=== PATIENT | female | born 1950 | race Caucasian/White ===

== ENCOUNTER 2019-09-24 07:28 | Outpatient (CLI) | payer MEDICARE, SELFPAY ==
--- NOTE | ~2019-09-24 | MR_ITS ---
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 Sequences included full-field axial PD-weighted FS FSE and T1-weighted FSE, coronal of the pelvis with PD-weighted FS FSE, small field of view of the affected hip with axial PD-weighted FS FSE, sag ittal PD-weighted FS FSE and coronal PD weighted FS FSE. Additional radial T1-weighted FGR oriented o rthogonal to the acetabular rim were obtained for evaluation of the labrum. COMPARISON: None FINDINGS: Bones/labrum/cartilage: Alignment is normal. There is increased T2 signal and curvilinear low signal underlying the articular cortex at the anterosuperior aspect of the left femoral head with irregular contour to the overlying articular cortex. There is no clearly defined double line sign, the contours of the curvilinear low signal favor degenerative subarticular cysts and there is associated prominent anterosuperior joint s pace narrowing with cartilage loss and with subarticular edema at the juxtaposed anterosuperior aceta bulum, all favoring that this represents degenerative change related to osteoarthritis with severe ch ondromalacia at the femoral head rather than osteonecrosis or insufficiency fracture. There is [place] at the bone chondral interface at the superolateral margin of the acetabulum. There is a diffu se degeneration of the left acetabular labrum which is diminutive anteriorly. Severe lower lumbar spo ndylosis. Fluid: Asymmetric small left hip joint effusion. Soft tissues: Normal and symmetric muscle bulk and signal in the pelvis and visualized proximal thighs. The iliopso as, gluteal and proximal hamstring tendons are normal. Limited evaluation of visceral organs of the p champ is unremarkable. No pathologically enlarged pelvic/inguinal lymphadenopathy. IMPRESSION: 1. 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 No specific MR findings of avascular necrosis. 2. Severe lower lumbar spondylosis. Reviewed, dictated and finalized at location A. IMPRESSION: 1. 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 No specific MR findings of stephany scular necrosis. 2. Severe lower lumbar spondylosis.
== END 2019-09-24 07:29 | disposition home or self-care (01) ==
PROVIDERS: PCP Internal Medicine; Visit Provider Orthopaedic Surgery
DX: M87.00 Idiopathic aseptic necrosis of unspecified bone (principal); M47.896 Other spondylosis, lumbar region; M16.12 Unilateral primary osteoarthritis, left hip
CPT/HCPCS: 73721

== ENCOUNTER 2020-10-25 09:26 | Outpatient (CLI) | payer MEDICARE, SELFPAY ==
--- NOTE | ~2020-10-25 | MM_ITS ---
EXAMINATION: MM screening [facility] BI w mariah HISTORY: Screening mammogram TECHNIQUE: Craniocaudal and mediolateral oblique 3-D tomosynthesis images were obtained and synthetic 2-D images were generated. CAD analysis was submitted and interpreted. COMPARISON: 07/15/2019, 06/26/2018, 06/19/2017 BREAST PARENCHYMAL COMPOSITION: There are scattered areas of fibroglandular density. FINDINGS: There is no evidence of suspicious mass, calcification, or architectural distortion to sugg est malignancy in either breast. There has been no suspicious interval change. IMPRESSION: 1. No mammographic evidence of malignancy. 2. Recommend routine screening mammography in one year. BI-RADS Category 1: Negative Reviewed, dictated and finalized at location A.
== END 2020-10-25 09:27 | disposition home or self-care (01) ==
LOC: ANHIMG 09:31
PROVIDERS: PCP Internal Medicine; Visit Provider Obstetrics & Gynecology
DX: Z12.31 Encounter for screening mammogram for malignant neoplasm of breast (principal)
CPT/HCPCS: 77063; 77067

== ENCOUNTER 2021-12-29 07:59 | Outpatient (CLI) | payer MEDICARE, SELFPAY ==
--- NOTE | ~2021-12-29 | MM_ITS ---
EXAMINATION: MM screening [facility] w mariah HISTORY: Screening mammogram TECHNIQUE: Craniocaudal and mediolateral oblique 3-D tomosynthesis images were obtained and synthetic 2-D images were generated. CAD analysis was submitted and interpreted. COMPARISON: 10/25/2020, 07/15/2019, 06/26/2018 bilateral screening mammogram examinations BREAST PARENCHYMAL COMPOSITION: The breasts are heterogeneously dense, which may obscure small masses . FINDINGS: There is no evidence of suspicious mass, calcification, or architectural distortion to sugg est malignancy in either breast. There has been no suspicious interval change. IMPRESSION: 1. No mammographic evidence of malignancy. 2. Recommend routine screening mammography in one year. BI-RADS Category 1: Negative Reviewed, dictated and finalized at location A.
== END 2021-12-29 08:00 | disposition home or self-care (01) ==
LOC: ANHIMG 08:01
PROVIDERS: PCP Internal Medicine; Visit Provider Obstetrics & Gynecology
DX: Z12.31 Encounter for screening mammogram for malignant neoplasm of breast (principal)
CPT/HCPCS: 77063; 77067

== ENCOUNTER 2023-02-01 09:39 | Outpatient (CLI) | payer MEDICARE, OTHER, SELFPAY ==
--- NOTE | ~2023-02-01 | MM_ITS ---
EXAMINATION: MM screening [facility] BI w mariah HISTORY: Screening mammogram TECHNIQUE: Craniocaudal and mediolateral oblique 3-D tomosynthesis images were obtained and synthetic 2-D images were generated. CAD analysis was submitted and interpreted. COMPARISON: 12/29/2021, 10/25/2020, 07/15/2019, 06/19/2017 BREAST PARENCHYMAL COMPOSITION: There are scattered areas of fibroglandular density. FINDINGS: No suspicious mass, calcification, or architectural distortion are identified in either shadra ast to suggest malignancy. There has been no suspicious interval change. IMPRESSION: 1. No mammographic evidence of malignancy. 2. Recommend routine screening mammography in one year. BI-RADS Category 1: Negative Reviewed, dictated and finalized at location A.
== END 2023-02-01 09:40 | disposition home or self-care (01) ==
PROVIDERS: PCP Internal Medicine; Visit Provider Family Medicine
DX: Z12.31 Encounter for screening mammogram for malignant neoplasm of breast (principal)
CPT/HCPCS: 77063; 77067

== ENCOUNTER 2023-05-13 09:00 | Outpatient (RCR) | payer MEDICARE, OTHER, SELFPAY ==
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
--- NOTE | 2023-03-13 17:56 | OPREHPOC ---
Outpatient Therapy Plan of Care This is a Multidisciplinary Plan of Care that may contain components documented by all disciplines (PT, OT, and ST.) PT Goal 1 Goal Pt will verbalize understanding of diagnosis and prognosis Target Visit 12 PT Goal 2 Goal Pt will be independent in HEP Target Visit 16 PT Problem 2 PT Problem #2 Pain PT Goal 1 Goal Pt will report greatest pain level at 3/10 or less Target Visit 12 PT Goal 2 Goal Pt will report resolution of pain Target Visit 16 PT Problem 3 PT Problem #3 Impaired Range of Motion PT Goal 1 Goal Pt will demo PROM left hip within 75% of right hip Pt will demo cervical lateral flexion of 30 degrees or greater Target Visit 16 PT Problem 4 PT Problem #4 Impaired Strength PT Goal 1 Goal Pt will demo strength of 4/5 in all tested planes Target Visit 16
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
--- NOTE | 2023-05-13 16:49 | PTOPDC ---
Assessment and note entered by Megan Be, PT Assessment Status Discharge Diagnosis cervicalgia, left hip pain Onset 02/01/2023 Subjective Information Self percieved improvement: 97% Neck is doing better, this last week feels like hip is doing good. No constant ache, only has discomfort going up steps and longer walking periods. Still an ache in the muscle but when gets bad will travel back. Reported Pain Level Pain Score 1,0: Self Report Assessment PT Clinical Summary Pt has attended therapy consistently for cervical and left hip pain. She reports feling 97% improved overall, has met most of her therapy goals however cont to have overall deficits in cervical range of motion and decreased hip weakness. However she feels confident in her understanding of her exercises and reports feeling much better than when starting therapy. Thus patient is being discharged for completion of therapy plan
== END 2023-05-15 11:07 | disposition home or self-care (01) ==
LOC: ANHHIPT 09:00
PROVIDERS: PCP Nurse Practitioner Family; Visit Provider Nurse Practitioner Family
DX: M54.2 Cervicalgia (principal)
CPT/HCPCS: 97014; 97110; 97112; 97140; 97162; 97750; G0283

== ENCOUNTER 2023-08-19 02:04 | Day surgery (SDC) | payer MEDICARE, OTHER, SELFPAY ==
[2023-07-23 14:16] VITALS: BMI 23.8
--- NOTE | 2023-08-16 11:06 | SUR.PREOP ---
Patient called regarding upcoming procedure. Reviewed preop instructions, appointment times, and procedure prep.
[2023-08-19 07:17] VITALS: BP 101/59; PULSE 85; RESP 20; TEMP 35.9; O2SAT 99; BMI 22.6
[2023-08-19] MEDS: LACTATED RINGERS 1,000 ML 150 ML IV CONT (07:27)
--- NOTE | 2023-08-19 07:48 | WPDANESEPPF ---
Anes - Initial Pre Proc Eval Procedure: Operation Date: 08/19/23 08:30 Proposed Procedures p Screening Colonoscopy - Baljit Swann MD Date/Time: 08/19/23 07:48 Surgeon: Baljit Swann MD Pre Op Diagnosis: hx of colon polyps Patient Data Age: 73 Gender: F Height: 1.57 m Weight: 56.3 kg Last Vital Signs Temp 96.7 F L 08/19/23 07:17 Pulse 85 08/19/23 07:17 Resp 20 08/19/23 07:17 BP 101/59 L 08/19/23 07:17 Pulse Ox 99 08/19/23 07:17 O2 Del Method Room Air 08/19/23 07:17 Allergies Allergy/AdvReac Type Severity Reaction Status Date / Time sulfamethoxazole AdvReac Intermediate Gastrointestinal Verified 08/19/23 07:14 [From Bactrim] Upset trimethoprim [From Bactrim] AdvReac Intermediate Gastrointestinal Verified 08/19/23 07:14 Upset Home Medications Medication Instructions Recorded Confirmed Type multivitamin 1 tablet PO DAILY 05/14/22 07/23/23 History cholecalciferol (vitamin D3) 50 50 mcg PO DAILY 05/15/22 07/23/23 History mcg (2,000 unit) capsule cyanocobalamin (vitamin B-12) 1,000 mcg PO DAILY 05/15/22 07/23/23 History 1,000 mcg capsule mupirocin 2 % topical ointment 1 applic topical BID #15 grams 05/15/22 07/23/23 Rx vit A 300 mcg-C 200 mg-E 27 1 tablet PO DAILY 05/15/22 07/23/23 History mg-lutein 2 mg and minerals tablet (Ocuvite with Lutein) olmesartan 20 mg tablet (Benicar) 20 mg PO DAILY #90 tabs 12/10/22 07/23/23 Rx hydrochlorothiazide 12.5 mg tablet 12.5 mg PO DAILY #90 tabs 02/08/23 07/23/23 Rx escitalopram oxalate 10 mg tablet 10 mg PO DAILY #90 tabs 07/15/23 07/23/23 Rx simvastatin 20 mg tablet 20 mg PO DAILY #90 tabs 07/15/23 07/23/23 Rx Patient hx anesthesia problems: none Family hx anesthesia problems: none Results Review: All pre-operative results and documents have been reviewed as part of the pre-operative evaluation. [facility] Past Medical History Medical History (Updated 06/16/23 @ 17:00 by Lon Rodney MD) Annual physical exam Heart disease High blood pressure High cholesterol Melanoma (~03/2015) left calf Osteoporosis Screening for breast cancer Screening for colon cancer Screening for thyroid disorder Screening mammogram, encounter for Squamous cell carcinoma (~03/2015) calf Squamous cell carcinoma of left lower leg Vaginal lesion (01/06/04) wide local excision of vaginal wall lesion--dysplasia Surgical History Surgical History H/O hysterectomy for benign disease History of ankle surgery (~2018) rt broken ankle--pins/plate placed History of colposcopy with cervical biopsy (12/07/03) History of orthopedic surgery (02/05/11) left wrist fracture History of tonsillectomy History of total abdominal hysterectomy and bilateral salpingo-oophorectomy (~1998) Family History Family History Unknown No problems noted. Father Malignant tumor of urinary bladder Other Heart disease Hypertension Social History Social History (Updated 06/11/23 @ 08:06 by Dorota Whitman [facility]) Smoking status: Never smoker Alcohol intake: current Drinks per week: 4 Substance use: never Substance use type: does not use Lack of Transportation: No Lack of Food: Never True Current Housing: I Have Housing Concerned About Future Housing: No Difficulty Paying Gas/Electric Bills: No Difficulty Paying for Meds: No Currently Unemployed: No Education: Don't Know Difficulty w/ Childcare or Family Care: No Living arrangements: with family Additional living arrangements comments: 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
--- NOTE | 2023-08-19 08:13 | PM.HPGS ---
History of Present Illness History of Present Illness Consent: Risks, benefits, and alternatives have been discussed and questions answered. Patient agrees to proceed with procedure. Chief complaint: hx of colon polyps Narrative: Kerrie Doyle is a 73 year old female with colon polyp 5 years ago Review of Systems Constitutional: Constitutional: Denies headache(s) and Denies weakness Eyes: Eyes: Denies blurry vision ENT: Reports Normal hearing present, Denies headache(s) and Denies neck pain Cardiovascular: Cardiovascular: Denies chest pain and Denies dyspnea Respiratory: Respiratory: Denies dyspnea Gastrointestinal: Gastrointestinal: Reports no additional gastrointestinal complaints Genitourinary: Genitourinary: Denies dysuria Musculoskeletal: Musculoskeletal: Denies neck pain Integumentary/Breasts: Skin/Breast: Denies dry skin Neurologic: Reports Normal hearing present, Denies headache(s) and Denies weakness Psychiatric: Psychiatric: Denies anxiety Endocrine: Endocrine: Denies change in body appearance Hematologic/Lymphatic: Hematologic/Lymphatic: Denies easy bleeding Allergic/Immunologic: Allergic/Immunologic: Denies urticaria PMFSH Past Medical History Medical History (Updated 08/19/23 @ 08:13 by Baljit Swann MD) Annual physical exam Colon polyp Heart disease High blood pressure High cholesterol Melanoma (~03/2015) left calf Osteoporosis Screening for breast cancer Screening for colon cancer Screening for thyroid disorder Screening mammogram, encounter for Squamous cell carcinoma (~03/2015) calf Squamous cell carcinoma of left lower leg Vaginal lesion (01/06/04) wide local excision of vaginal wall lesion--dysplasia Surgical History Surgical History H/O hysterectomy for benign disease History of ankle surgery (~2018) rt broken ankle--pins/plate placed History of colposcopy with cervical biopsy (12/07/03) History of orthopedic surgery (02/05/11) left wrist fracture History of tonsillectomy History of total abdominal hysterectomy and bilateral salpingo-oophorectomy (~1998) Family History Family History Unknown No problems noted. Father Malignant tumor of urinary bladder Other Heart disease Hypertension Social History Social History (Updated 06/11/23 @ 08:06 by Dorota Whitman CMA) Smoking status: Never smoker Alcohol intake: current Drinks per week: 4 Substance use: never Substance use type: does not use Lack of Transportation: No Lack of Food: Never True Current Housing: I Have Housing Concerned About Future Housing: No Difficulty Paying Gas/Electric Bills: No Difficulty Paying for Meds: No Currently Unemployed: No Education: Don't Know Difficulty w/ Childcare or Family Care: No Living arrangements: with family Additional living arrangements comments: Occupation/Education: 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 Gender identity (if verbalized by the patient): Female Sexual Orientation (if Verbalized by the Patient): Straight or Heterosexual Spiritual care concerns: No Meds Home Medications and Allergies Home Medications Medication Instructions Recorded Confirmed Type multivitamin 1 tablet PO DAILY 05/14/22 07/23/23 History cholecalciferol (vitamin D3) 50 50 mcg PO DAILY 05/15/22 07/23/23 History mcg (2,000 unit) capsule cyanocobalamin (vitamin B-12) 1,000 mcg PO DAILY 05/15/22 07/23/23 History 1,000 mcg capsule mupirocin 2 % topical ointment 1 applic topical BID #15 grams 05/15/22 07/23/23 Rx vit A 300 mcg-C 200 mg-E 27 1 tablet PO DAILY 05/15/22 07/23/23 History mg-lutein 2 mg and minerals tablet (Ocuvite with Lutein) olmesartan 20 mg tablet (Benicar) 20 mg PO DAILY #90 tabs 12/10/22 07/23/23 Rx hydrochlorothiazide 12.5 mg table
[2023-08-19 08:33] VITALS: BP 85/50; PULSE 58; RESP 16; O2SAT 96
[2023-08-19 08:44] VITALS: BP 85/56; PULSE 59; RESP 22; O2SAT 96
[2023-08-19 08:51] VITALS: BP 85/56; PULSE 67; RESP 20; O2SAT 100
[2023-08-19 09:01] VITALS: BP 97/64; PULSE 76; RESP 18; O2SAT 100
== END 2023-08-19 09:03 | disposition home or self-care (01) ==
PROVIDERS: PCP Family Medicine; Visit Provider Internal Medicine Gastroenterology
PROC: 0DJD8ZZ Inspection of Lower Intestinal Tract, Via Natural or Artificial Opening Endoscopic (ICD-10-PCS; CPT 45378; principal; 2023-08-19 08:30)
DX: Z12.11 Encounter for screening for malignant neoplasm of colon (principal); K64.8 Other hemorrhoids; I10 Essential (primary) hypertension; E78.00 Pure hypercholesterolemia, unspecified; Z98.890 Other specified postprocedural states; Z86.010 Personal history of colon polyps; Z86.79 Personal history of other diseases of the circulatory system; Z85.828 Personal history of other malignant neoplasm of skin; Z82.49 Family history of ischemic heart disease and other diseases of the circulatory system; Z80.52 Family history of malignant neoplasm of bladder
CPT/HCPCS: G0105; J2371; J2704; J7120

== ENCOUNTER 2023-12-11 08:00 | Outpatient (RCR) | payer MEDICARE, OTHER, SELFPAY ==
--- NOTE | 2023-11-05 16:44 | OPREHPOC ---
Outpatient Therapy Plan of Care This is a Multidisciplinary Plan of Care that may contain components documented by all disciplines (PT, OT, and ST.) PT Goal 1 Goal Pt will be independent in HEP Pt will verbalize understanding of diagnosis and prognosis Target Visit 10 PT Problem 2 PT Problem #2 Pain PT Goal 1 Goal Pt will report greatest pain level at 3/10 or less to improve ADLs and activities Target Visit 10 PT Goal 2 Goal Pt will report resolution of pain to return to PLOF Target Visit 20 PT Problem 3 PT Problem #3 Impaired Range of Motion PT Goal 1 Goal Pt will demo improved left hip ROM abduction by 10 degrees Target Visit 10 PT Goal 2 Goal Pt will demo passive ROM left hip within 75% of right hip in all planes Target Visit 20 PT Problem 4 PT Problem #4 Impaired Strength PT Goal 1 Goal Pt will demo 4/5 left hip strength in all tested planes Target Visit 20 PT Goal 2 Goal Pt will demo 4/5 plantar flexion strength RLE Target Visit 20
--- NOTE | 2023-11-05 16:44 | PTOPEVAL1 ---
Assessment and note entered by Megan Be, PT Evaluation Information Assessment Status Evaluation Diagnosis pain in right foot, pain in left hip Therapy conditions stiffness left hip, weakness Onset 3 months Subjective Information Pt states worst in the evening after sitting in recliner long periods when first stands up and walks. Takes a couple minutes to work out but is limping at the time. Reports pain started in the middle of the heel and now is around the outside right of the right heel. Right hip with any walking, especially after long periods will ache. Always getting in the car and lifting leg into passenger seat. up and down steps multiple times, it will get so bad will travel up as well. Reported Pain Level Pain Score 0,0: Self Report Assessment PT Clinical Summary Pt presents with complaints of right foot pain and left hip pain. Demo's poor arches in standing but high arches in supine, decreased ankle ROM in dorsiflexion especially, multiple areas of decreased strength in ankle and hip, increased tissue density left leg and decreased ROM left hip compared to right. Suggestive of right plantar fasciitis and left hip inferior capsule tightness. Will benefit from physical therapy to address deficits, improve pain, and improve patient independence and functionality. Plan of Care Interventions Electrical Stimulation,Hot Pack/Cold Pack,Manual Therapy,Neuro Re-education,Therapeutic Activities, Therapeutic Exercise,Ultrasound PT Services Indicated Yes Treatment Frequency and 1-2x weekly x 20 visits Duration These treatments will address the objective and functional deficits as defined above. The patient will be advanced safely and appropriately in order for the patient to progress towards his/her prior level of function. Additional exercises will be introduced and as well as a comprehensive home exercise program upon discharge, if needed, ?to ensure carryover of functional gains achieved in the clinic. This treatment plan has been reviewed and agreement upon by the patient.
--- NOTE | 2023-12-11 11:46 | PTOPDC ---
Assessment and note entered by Reji Sena, SPT Assessment Status Discharge Diagnosis pain in right foot, pain in left hip Onset 3 months Subjective Information Pt states that both the L hip and R foot pain has greatly improved . pt states L hip is 98% better with the last 2% being aches that come and go. The R foot is also 98% better with mild pain occasionally with initial weightbearing Reported Pain Level Pain Score 0,0: Self Report Assessment PT Clinical Summary Pt reports to physical therapy for a re-evaluation after 10 visits. Pt reports that she feels 98% better in terms of pain of both L hip and R foot and upon examination she displayed improvements in hip strength and ROM. Pt met all therapy goals and was given HEP to continue hip strengthening and hip external rotation stretch to continue progressions. Pt was educated on self massage with tools such as IASTM and foam rollers for L hip and R foot. Plan of Care PT Services Indicated No
== END 2023-12-11 14:17 | disposition home or self-care (01) ==
LOC: ANHHIPT 08:00
PROVIDERS: PCP Family Medicine; Visit Provider Family Medicine
DX: M79.671 Pain in right foot (principal)
CPT/HCPCS: 97110; 97140; 97162; 97530; 97750

== ENCOUNTER 2024-03-04 09:29 | Outpatient (CLI) | payer MEDICARE, OTHER, SELFPAY ==
--- NOTE | ~2024-03-04 | MM_ITS ---
EXAMINATION: MM screening [facility] BI w mariah HISTORY: Screening TECHNIQUE: Craniocaudal and mediolateral oblique 3-D tomosynthesis images were obtained and synthetic 2-D images were generated. CAD analysis was submitted and interpreted. COMPARISON: Comparison to multiple prior studies sequentially, with oldest reviewed study dated 06/07. BREAST PARENCHYMAL COMPOSITION: Not dense: There are scattered areas of fibroglandular density. FINDINGS: There is no evidence of suspicious mass, calcification, or architectural distortion to sugg est malignancy in either breast. There has been no suspicious interval change. IMPRESSION: 1. No mammographic evidence of malignancy. 2. Recommend routine screening mammography in one year. BI-RADS Category 1: Negative Reviewed, dictated and finalized at location B.
== END 2024-03-04 09:30 | disposition home or self-care (01) ==
PROVIDERS: PCP Physician Assistant Medical; Visit Provider Physician Assistant Medical
DX: Z12.31 Encounter for screening mammogram for malignant neoplasm of breast (principal)
CPT/HCPCS: 77063; 77067

== ENCOUNTER 2025-03-10 09:00 | Outpatient (RCR) | payer MEDICARE, OTHER, SELFPAY ==
--- NOTE | 2025-01-15 09:47 | OPREHPOC ---
Outpatient Therapy Plan of Care This is a Multidisciplinary Plan of Care that may contain components documented by all disciplines (PT, OT, and ST.) PT Problem 1 PT Problem #1 Knowledge Deficit PT Goal 1 Goal / Goal Update Pt will be independent in HEP Pt will verbalize understanding of diagnosis and prognosis Target Visit 4 PT Problem 2 PT Problem #2 Impaired Range of Motion PT Goal 1 Goal / Goal Update Pt will demonstrate equal lateral flexion and rotation R/L cervical spine Target Visit 4 PT Goal 2 Goal / Goal Update Pt will demonstrate improved thoracic ROM lateral flexion of 50% or greater Target Visit 8 PT Problem 3 PT Problem #3 Impaired Sensation PT Goal 1 Goal / Goal Update Pt will report resolution of tingling in LUE Target Visit 8
--- NOTE | 2025-01-15 09:47 | PTOPEVAL1 ---
Assessment and note entered by Megan Be, PT Evaluation Information Assessment Status Evaluation Diagnosis radciulopathy cervical region ICD-10 Condition Codes (PT) Radiculopathy, cervical M54.13,Weakness R53.1 Other ICD-10 Condition Codes ( abnormal posture PT) Subjective Information Pt reports neck and and shoulder blade pain, couldn't sleep at night. Tingling from inner elbow to last 2 digits. If takes a bath and puts the hand in warm water will tingle worse. Got a shot from her PCP and now the neck and shoulder blade pain are gone. Reported Pain Level Pain Score 0: Self Report Assessment PT Clinical Summary Pt presents with tingling into left lower arm and lateral 2 digits, not painful. Had been having severe neck pain as well and into scapula, received a steroid shot and this has resolved the neck and scapular pain issue. Evaluation does show postural abnormalities, decreased motion in the thoracic and cervical spine, and scapular muscle patterning deficit causing upper trapezius resting tone. Pt will benefit from physical therapy to address deficits, reduce radicular symptoms, and promote appropriate muscle patterning to reduce possibility of flare ups in the future. Plan of Care Interventions Electrical Stimulation,Hot Pack/Cold Pack,Manual Therapy,Neuro Re-education,Patient/Caregiver Education,Therapeutic Activities,Therapeutic Exercise,Self-Care/Home Management,Ultrasound, Other Other Interventions Taping, bracing PT Services Indicated Yes Treatment Frequency and 2x weekly x 8 visits Duration These treatments will address the objective and functional deficits as defined above. The patient will be advanced safely and appropriately in order for the patient to progress towards his/her prior level of function. Additional exercises will be introduced and as well as a comprehensive home exercise program upon discharge, if needed, ?to ensure carryover of functional gains achieved in the clinic. This treatment plan has been reviewed and agreement upon by the patient.
--- NOTE | 2025-02-15 11:21 | PTOPPROG ---
Assessment and note entered by Megan Be, PT Evaluation Information Assessment Status Progress Diagnosis radciulopathy cervical region ICD-10 Condition Codes (PT) Radiculopathy, cervical M54.13,Weakness R53.1 Other ICD-10 Condition Codes ( abnormal posture PT) Subjective Information Pt reports tingling is maybe 1-2x daily and is little and goes away in less than 15 minutes and is usually with sitting. Neck and shoulder blade are doing good. Sleeping pretty good on the most part, but is not due to the pain she presented with is more an overall discomfort. 99-100% improved. Reading only needs to look up every half hour or so due to some discomfort in the neck. Credits this improvement to the CONTAINER COORDINATOR deep tissue massage Assessment PT Clinical Summary Pt has attended therapy consistently for her neck pain and radiculopathy. She reports significant improvement in both, with some mild continued discomfort in the neck wiht reading, and tingling daily with sitting though the tingling has improved in intensity, frequency, and length of time. Pt cont to demonstrate multiple ROM deficits and muscle tonicity today however. Thus patient will benefit from continued therapy continuing to address the underlying issues and decrease probability of flare ups in the future. Plan of Care Interventions Electrical Stimulation,Hot Pack/Cold Pack,Manual Therapy,Neuro Re-education,Patient/Caregiver Education,Therapeutic Activities,Therapeutic Exercise,Self-Care/Home Management,Ultrasound, Other Other Interventions Taping, bracing PT Services Indicated Yes Treatment Frequency and 1-2x weekly x 10 visits Duration These treatments will address the objective and functional deficits as defined above. The patient will be advanced safely and appropriately in order for the patient to progress towards his/her prior level of function. Additional exercises will be introduced and as well as a comprehensive home exercise program upon discharge, if needed, ?to ensure carryover of functional gains achieved in the clinic. This treatment plan has been reviewed and agreement upon by the patient.
--- NOTE | 2025-02-15 11:21 | OPREHPOC ---
Outpatient Therapy Plan of Care This is a Multidisciplinary Plan of Care that may contain components documented by all disciplines (PT, OT, and ST.) PT Problem 1 PT Problem #1 Knowledge Deficit PT Goal 1 Goal / Goal Update Pt will be independent in HEP Pt will verbalize understanding of diagnosis and prognosis Target Visit 4 Progress Met PT Problem 2 PT Problem #2 Impaired Range of Motion PT Goal 1 Goal / Goal Update Pt will demonstrate equal lateral flexion and rotation R/L cervical spine - met for rotation (updated target visits) Target Visit 12 Progress Partially Met PT Goal 2 Goal / Goal Update Pt will demonstrate improved thoracic ROM lateral flexion of 50% or greater - increased to 30% (updated target visits) Target Visit 18 Progress Partially Met PT Problem 3 PT Problem #3 Impaired Sensation PT Goal 1 Goal / Goal Update Pt will report resolution of tingling in LUE - significantly improved (updated target visits) Target Visit 18 Progress Partially Met
--- NOTE | 2025-03-10 09:46 | PTOPDC ---
Assessment and note entered by Megan Be, PT Evaluation Information Assessment Status Discharge Diagnosis radciulopathy cervical region ICD-10 Condition Codes (PT) Radiculopathy, cervical M54.13,Weakness R53.1 Other ICD-10 Condition Codes ( abnormal posture PT) Subjective Information Pt reports the tingling is gone now. Once in a blue bowling will get a tingle then it goes away pretty fast. Feels 100% improved Shoulder blade is good Neck is always in knots but is back to her normal Reading is back to normal too Pt reports has been slacking on her HEP Reported Pain Level Pain Score 0: Self Report Assessment PT Clinical Summary Pt has attended therapy consistently 9 visits for her neck and radicular symptoms. She reports pain and tingling is resolved, feels 100% back to her normal. She has met all her therapy goals as well and is thus being discharged from completion of plan of care. Plan of Care PT Services Indicated No
== END 2025-03-10 09:53 | disposition home or self-care (01) ==
LOC: ANHHIPT 09:00
PROVIDERS: PCP Physician Assistant Medical; Visit Provider Physician Assistant Medical
DX: M54.12 Radiculopathy, cervical region (principal)
CPT/HCPCS: 97014; 97110; 97140; 97161; 97530; 97750; G0283

== ENCOUNTER 2025-04-01 09:34 | Outpatient (CLI) | payer MEDICARE, OTHER, SELFPAY ==
--- NOTE | ~2025-04-01 | MM_ITS ---
EXAMINATION: MM screening glynn BI w mariah HISTORY: Screening TECHNIQUE: Craniocaudal and mediolateral oblique 3-D tomosynthesis images were obtained and synthetic 2-D images were generated. CAD analysis was submitted and interpreted. COMPARISON: Mammogram 12/29/2021 BREAST PARENCHYMAL COMPOSITION: The breasts are heterogeneously dense, which may obscure small masses. FINDINGS: There is no evidence of suspicious mass, calcification, or architectural distortion to suggest malignancy. There has been no suspicious interval change. IMPRESSION: 1. No mammographic evidence of malignancy. Recommend routine screening mammography in one year. BI-RADS Category 2: Benign finding(s) Reviewed, dictated and finalized at location Q. IMPRESSION: 1. No mammographic evidence of malignancy. Recommend routine screening mammogra phy in one year. BI-RADS Category 2: Benign finding(s)
--- OUTSIDE RECORDS SUMMARY | 2025-04-01 10:23 | XMS_ITS | Encounter Summary ---
Author Organization [facility] Address [address] [place] [address] Care Team Providers Care Label Stitcher Name Role Phone Nura Bentley MD Primary Care Provider [phone] Lon Rodney MD Primary Care Provider [phone] Jackie Meneses PA-C Primary Care Provider [phone] Reason for Visit * Reason Onset Date Comments Results 06/16/2018 Encounter Details Date Type Department Care Team (Late st Contact Info) Description 06/16/2018 Telephone [facility] [address] [place] [address] Marylou Mendoza MD [address] [facility] [address] DEPT [place] [id number] Results Social History Tobacco Use Types Packs/Day Years Used Date Smoking Tobacco: Never Smokeless Tobacco: Never Alcohol Use Standard Drinks/Week Comments Yes 2 (1 standard drink = 0.6 oz pur e alcohol) Comments Unknown Sex and Gender Information Value Date Recorded Sex Assigned at Not on file Legal Sex Female 5:14 PM PANTOGRAPH WATCHER Gender Identity Not on file Sexual Orientation Not on file documented as of this encounter Miscellaneous Notes * Telephone Encounter - Shiela Barry - 06/16/2018 8:51 AM CST Pt called regarding her bx results. Please advise. OGRAPH WATCHER documented in this encounter Plan of Treatment Upcoming Encounters Date Type Department Care Team (Late st Contact Info) Description 06/07/2025 10:20 AM PANTOGRAPH WATCHER Office Visit [facility] - Dermatology [address] [place] [address], [place] [address] Marylou Mendoza MD [address] [place] [address] [address] [place] [address] documented as of this encounter Visit Diagnoses Not on filedocumented in this encounter Care Teams Label Stitcher Relationship Specialty Start Date End Date Nura Bentley MD [address] [place] [address] [address] [place] [address] PCP - General 01/02/11 06/09/23 Lon Rodney MD [address] [place] [id number] PCP - General Family Medicine 06/10/23 04/05/24 Jackie Meneses PA-C [address] [place] [address] [address] [place] [address] PCP - General Physician Manager Student Services 04/06/24 documented as of this encounter
--- OUTSIDE RECORDS SUMMARY | 2025-04-01 10:23 | XMS_ITS | Encounter Summary ---
Author Organization [facility] Address [address] [facility] [place] [address] Care Team Providers Care Recording Studio Intern Name Role Phone Nura Bentley MD Primary Care Provider [phone] Lon Rodney MD Primary Care Provider [phone] Jackie Meneses PA-C Primary Care Provider [phone] Reason for Visit * Reason Onset Date Comments Results 06/18/2018 Encounter Details Date Type Department Care Team (Late st Contact Info) Description 06/18/2018 Telephone [facility] [address] [place] [address] Marylou Mendoza MD [address] [facility] 3L [place] [id number] Results Social History Tobacco Use Types Packs/Day Years Used Date Smoking Tobacco: Never Smokeless Tobacco: Never Alcohol Use Standard Drinks/Week Comments Yes 2 (1 standard drink = 0.6 oz pur e alcohol) Comments Unknown Sex and Gender Information Value Date Recorded Sex Assigned at Not on file Legal Sex Female 5:14 PM EXECUTIVE ADMIN Gender Identity Not on file Sexual Orientation Not on file documented as of this encounter Miscellaneous Notes * Telephone Encounter - Gabrielle Knight MD - 06/20/2018 5:39 PM EXECUTIVE ADMIN I contacted patient on home phone # and discussed with her the biopsy results of SCCIS, 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 Patient states the biopsy site is healing slowly and she has been following directed wound care including wearing her compression hoses and is not exhibiting signs suggestive of infection. Patient appreciative of the call. Gabrielle Knight MD [facility] Dermatology Resident PGY-2 UTIVE ADMIN * Telephone Encounter - Kelly Nino MA - 06/18/2018 9:29 AM CST Path report is in chart, but says edited result where final usually is... Kelly Nino MA UTIVE ADMIN * Telephone Encounter - Lesley Gamino - 06/18/2018 9:17 AM CST Patient called asking for biopsy results. Please call patient when results are final. Pt ph [phone]. Domenica Gamino Senior Patient Supervisor Fusing Room Department of Dermatology, Mohs Surgery and Cutaneous Oncology [facility] Dermatology [facility] UTIVE ADMIN documented in this encounter Plan of Treatment Upcoming Encounters Date Type Department Care Team (Late st Contact Info) Description 06/07/2025 10:20 AM EXECUTIVE ADMIN Office Visit [facility] - Dermatology [address] [place] [address], [place] [phone] Marylou Mendoza MD [address] [place] [address] [address] [place] [phone] documented as of this encounter Visit Diagnoses Not on filedocumented in this encounter Care Teams Recording Studio Intern Relationship Specialty Start Date End Date Nura Bentley MD [address] [place] [id number] PCP - General 01/02/11 06/09/23 Lon Rodney MD [address] [place] [phone] PCP - General Family Medicine 06/10/23 04/05/24 Jackie Meneses PA-C [address] [place] [id number] PCP - General Physician Metal Control Coordinator 04/06/24 documented as of this encounter
--- OUTSIDE RECORDS SUMMARY | 2025-04-01 10:23 | XMS_ITS | Clinical Summary ---
Author Organization [facility] Address [address] [place] [address] Care Team Providers Care Administrative Asst Name Role Phone Jackie Meneses PA-C Primary Care Provider [phone] Source Comments [facility],non-owned Affiliates and Associated Physician Practices is amultiple site organization consisting of ambulatory clinics and hospital sitesin [place], [place], [place] and [place]. This disclosure is being madepursuant to the Care Everywhere program and may not contain all information available regarding this patient. Last updated 18.[facility] Allergies Active Allergy Reactions Criticality Noted Date Comments Sulfamethoxazole W-Trimethoprim Nausea and/or Vomiting 09/12/2023 Sulfamethoxazole-Trimethoprim Nausea and/or Vomiting 02/11/2024 Medications * Be aware that medications may not be up to date on this document. Alwaysverify current medications with the patient. simvastatin (ZOCOR) 20 MG tablet Take 1 (one) tablet by mouth at bedtime 0 11/02/2016 Active Vitamin D3 (CHOLECALCIFERO L) 2000 UNITS capsule Take 1 (one) capsule by mouth once daily Active cyanocobalamin (VITAMIN B-12) 500 MCG tablet Take 1 (one) tablet by mouth once daily Active MULTIPLE VITAMIN PO Take 1 tablet by mouth once daily Active olmesartan (BENICAR) 20 MG tablet Take 1 (one) tablet by mouth once daily Active Multiple Vitamins-Minera ls (PRESERVISION AREDS 2) capsule Take 1 (one) capsule by mouth once daily Active escitalopram (LEXAPRO) 10 MG tablet Take 1 (one) tablet by mouth once daily 1 02/22/2019 Active calcium 500 mg tablet Take 1 (one) tablet by mouth 2 times daily with morning and evening meal Active hydroCHLOROthia zide (Hydrodiuril) 12.5 MG Take 1 (one) tablet by mouth once daily 04/30/2022 Active amLODIPine (Norvasc) 5 MG tablet Take 1 (one) tablet by mouth once daily 06/17/2024 Active alendronate (Fosamax) 70 MG tablet TAKE 1 TABLET BY MOUTH WEEKLY 06/05/2024 Active ALPRAZolam (Xanax) 0.25 MG tablet Take 1 (one) tablet by mouth 2 times daily as needed anxiety 07/29/2024 Active olmesartan (Benicar) 40 MG tablet 08/11/2024 Active Alendronate Sodium (FOSAMAX PO) Active escitalopram (Lexapro) 5 MG tablet Take 1 (one) tablet by mouth once daily 09/08/2024 Active Active Problems Problem Noted Date Diagnosed Date Actinic skin damage 12/19/2020 Assessment & Plan (12/19/2020 9:43 AM CDT): - Chronic - Extensive lesions associated with sun damage and increased risk of skin cancer - Reviewed concerning signs for development of skin cancer - Counseled on importance of daily sun protection, recommend OTC broad spectrum, SPF >30 - Advised monthly self skin exams Dermatofibroma of lower leg, left 10/03/2020 Seborrheic keratoses 10/03/2020 Multiple benign melanocytic nevi of upper and lower extremities and trunk 10/03/2020 History of nonmelanoma skin cancer 10/03/2020 Assessment & Plan (12/19/2020 9:43 AM CDT): - No signs of local recurrence - Encouraged monthly self skin exams - Counseled on importance of daily sun protection (Broad spectrum, SPF >30), - Sun screen hand out provided Epidermal inclusion cyst 05/11/2019 Actinic keratosis 06/09/2018 Assessment & Plan (12/19/2020 9:45 AM CDT): - Face, neck, arms, legs >15 - Counseled on diagnosis, etiology, natural disease course- including pre- malignant nature of lesions and association with sun exposure - Cryotherapy performed today (see procedure note) - Wound care reviewed, post-cryo handout given - Plan to repeat Efudex to arms/hands in Fall Assessment & Plan (07/11/2020 10:53 AM BOOTMAKER HAND): Destruction of pre-malignant lesions Cryotherapy performed to all lesions. (See procedure note). Wound care reviewed with patient. 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 History of SCC (squamous cell carcinoma) of skin 06/17/2017 History of melanoma 09/26/2016 Assessment & Plan (12/19/2020 9:45 AM CDT): - No evidence of recurrence - ABCDEs of melanoma reviewed - Benign, reassurance - Annual dental, OBGYN exam, regular age-appropriate cancer screenings - Sun protection, self-exam Encounters Date Type Department Care Team Description 03/04/2025 7:30 AM CDT Procedure visit [facility] - Dermatology [address] [place] [phone] Mohinder Willson MD Squamous cell cancer of skin of right forearm ; Actinic keratosis 02/26/2025 Travel 02/23/2025 Results Follow-Up [facility]ermatology [address] [place] [phone] Marylou Mendoza MD 02/22/2025 9:50 AM CDT Office Visit [facility] Dermatology [address] [place] [phone] Marylou Mendoza MD History of melanoma (Primary Dx); Hx of nonmelanoma skin cancer; Actinic keratosis; Multiple benign melanocytic nevi of upper and lower extremities and trunk; Solar lentiginosis; Seborrheic keratoses; Hand angioma; Neoplasm of uncertain behavior of skin; Inflamed seborrheic keratosis 02/22/2025 Travel from Last 3 Months Immunizations Immunization Administration Dates Next Due Weatherista primary monoval ent 12+ yr 0.3mL Purple cap 09/03/2020 INFLUENZA VACCINE 05/15/2022,04/26/2019 INFLUENZA VACCINE, HIGH-DOSE , QUADR. (FLUZONE HIGH-DOSE QUADRIVALENT; 65Y+), 0.7 ML (HD-IIV4) 05/04/2020 Family History Medical History Relation Name Comments None Known Brother Cancer Father Status: d None Known Maternal Aunt None Known Maternal Grandfather None Known Maternal Grandmother None Known Maternal Uncle None Known Mother None Known Other None Known Paternal Aunt None Known Paternal Grandfather None Known Paternal Grandmother None Known Paternal Uncle None Known Sister Allergy (Severe) Neg Hx Asthma Neg Hx CVA Neg Hx Cancer - Breast Neg Hx Cancer - Other Neg Hx Cancer - Skin, Melanoma Neg Hx Cancer - Skin, Non Melanoma Neg Hx Eczema Neg Hx Hemophilia Neg Hx Psoriasis Neg Hx Rashes/Skin Problems Neg Hx Relation Name Status Comments Brother Father Maternal Aunt Maternal Grandfather Maternal Grandmother Maternal Uncle Mother Other Paternal Aunt Paternal Grandfather Paternal Grandmother Paternal Uncle Sister Social History Tobacco Use Types Packs/Day Years Used Date Smoking Tobacco: Never Smokeless Tobacco: Never Tobacco Cessation:Counseling Given: Not Answered Alcohol Use Standard Drinks/Week Comments Yes 2 (1 standard drink = 0.6 oz pur e alcohol) Comments No Sex and Gender Information Value Date Recorded Sex Assigned at Not on file Legal Sex Female 5:14 PM BOOTMAKER HAND Gender Identity Not on file Sexual Orientation Not on file Last Filed Vital Signs Vital Sign Reading Time Taken Comments Blood Pressure 142/96 10/10/2021 8:56 AM CDT Pulse 72 10/10/2021 8:56 AM CDT Temperature 36.7 C (98 F) 11/07/2015 12:59 PM CDT Respiratory Rate - - Oxygen Saturation 99% 01/11/2017 3:08 PM CDT Inhaled Oxygen Concentration - - Weight 56.7 kg (125 lb) 09/09/2023 11:11 AM BOOTMAKER HAND Height 157.5 cm (5' 2) 09/09/2023 11:11 AM BOOTMAKER HAND Body Mass Index 22.86 09/09/2023 11:11 AM BOOTMAKER HAND Plan of Treatment Upcoming Encounters Date Type Department Care Team (Late st Contact Info) Description 06/07/2025 10:20 AM BOOTMAKER HAND Office Visit [facility] - Dermatology [address] [place] [phone] Marylou Mendoza MD [facility] [address] [place] [phone] Health Maintenance Due Date Last Done Comments COLOGUARD (AGES 45-75) - COLON CA SCREENING 1950 COLON MONITORING 1950 COLONOSCOPY - COLON CA SCREENING 1950 CT COLONOGRAPHY - COLON CA SCREENING 1950 Colorectal Cancer Screening 1950 FIT - COLON CA SCREENING 1950 FLEX SIG - COLON CA SCREENING 1950 MAMMOGRAM 1950 MEDICARE AWV 12 MONTHS 1950 HEPATITIS C SCREENING 06/24/1968 DTAP/TDAP/TD VACCINES (1 - Tdap) 1969 PNEUMOCOCCAL VACCINE 50+ (1 of 1 - PCV) 2000 ZOSTER VACCINE (1 of 2) 2000 DEPRESSION SCREENING 07/08/2024 COVID-19 VACCINE (4 - 2024- season) 2025 06/05/2021, 09/24/2020, 09/03/2020 INFLUENZA VACCINE (#1) 2025 , 04/22/2023, 05/15/2022, Additional history exists Respiratory Syncytial Virus (RSV) Vaccine Pt: or over 60 yrs (1 - 1-dose 75+ series) 2025 BONE DENSITY TESTING Completed 06/01/2024, 05/30/20 22 HEPATITIS B VACCINE Aged Out No longe r eligible based on patient's age to complete this topic HIB VACCINE Aged Out No longer eligi ble based on patient's age to complete this topic HPV VACCINE Aged Out No longer eligi ble based on patient's age to complete this topic MENINGOCOCCAL (Group B) VACCINE SHARED DECISION-MAKING Aged Out No longer eligible based on patient's age to complete this topic MENINGOCOCCAL GROUPS A/C/Y/W VACCINE Aged Out No longer eligible based on patient's age to complete this topic Procedures Procedure Name Priority Date/Time Associated Diagnosis Comments NC DESTROY PREMALIG LESION, 1ST LESION Routine 03/04/2025 7:19 PM CDT Actinic keratosis NC INTMD WND REPAIR TRUNK,ARM,LEG 2.6-7.5 Routine 03/04/2025 9:39 AM CDT Squamous cell cancer of skin of right forearm NC CHMSRG MOHS MG TQ T/A/L 1ST STAG 5 BLOCKS Routine 03/04/2025 9:39 AM CDT Squamous cell cancer of skin of right forearm NC TANGNTL BX SKIN EA SEP ADDL Routine 02/22/2025 10:19 AM CDT Neoplasm of uncertain behavior of skin NC TANGNTL BX SKIN SINGLE LES Routine 02/22/2025 10:19 AM CDT Neoplasm of uncertain behavior of skin NC DESTROY PREMALIG LESION, 2-14 Routine 02/22/2025 10:19 AM CDT Actinic keratosis NC DESTROY PREMALIG LESION, 1ST LESION Routine 02/22/2025 10:19 AM CDT Actinic keratosis DERMATOPATHOLOGY Routine 02/22/2025 10:1 5 AM CDT Neoplasm of uncertain behavior of skin from Last 3 Months Results * NC DESTROY PREMALIG LESION, 1ST LESION (03/04/2025 7:19 PM CDT) Narrative Mohinder Willson MD - 03/04/2025 7:19 PM CDT Mohinder Willson MD 03/04/2025 7:19 PM Diagnosis of actinic keratosis and treatment options discussed. Cryotherapy (Liquid Nitrogen) to 1 lesion(s) on the right arm for 6-10 seconds. Number of cycles: 2. Wound care reviewed. Mohinder Willson MD us Mohinder Willson MD PROCEDURE/MINOR SURGICAL ORDER JUANCHO Final Result * NC CHMSRG MOHS MG TQ T/A/L 1ST STAG 5 BLOCKS, NC INTMD WND REPAIR TRUNK,ARM,LEG 2.6-7.5 (59:39 AM CDT) Narrative Mohinder Willson MD - 03/04/2025 9:39 AM CDT Mohinder Willson MD 03/04/2025 7:03 PM Mohs Micrographic Surgery Operative Note Procedure: Mohs micrographic surgery Date of service: 03/04/2025 Location: right dorsal forearm Preop diagnosis: Squamous cell carcinoma, well differentiated subtype Postop diagnosis: Squamous cell carcinoma, well differentiated subtype Mohs AUC score: 7 Number of stages: 1 Preop size: 0.4x0.8 cm Postop size: 1.2x1.2 cm Depth of final defect: adipose Previous dermpath accession #: [id number] Repair type: intermediate Mohs accession #: [id number] Surgeon and Pathologist: Mohinder Willson MD served as both surgeon and pathologist. No other physician was involved in the cancer removal or pathology interpretation. Assistants: N/A Indications for Mohs Surgery Removal of the patient's tumor is complicated by the following clinical features: recurrent. Based on my medical judgement, Mohs surgery is the most appropriate treatment for this cancer compared to other treatments. I discussed alternative treatments to Mohs surgery and specifically discussed the risks and benefits of curettage, excision with permanent sections, and foregoing treatment. The rationale for Mohs was explained to the patient and consent was obtained. The risks, benefits and alternatives to therapy were discussed in detail. Specifically, the risks of infection, scarring, bleeding, prolonged wound healing, incomplete removal, allergy to anesthesia, nerve injury and recurrence were addressed. Prior to the procedure, the treatment site was clearly identified and confirmed by the patient. All components of Garber Protocol/PAUSE Rule completed. STAGE I: The patient was placed on the operating table. The cancer was identified and outlined. The entire surgical field was prepped with hibiclens. The surgical site was anesthetized using Lidocaine 1% with epinephrine 1:100,000 buffered with sodium bicarbonate 8.4% in a 1:10 ratio.The area of clinically apparent tumor was debulked with a 2 mm curette. The layer of tissue was then surgically excised using a #15 blade and was then transferred onto a specimen sheet maintaining the orientation of the specimen. Hemostasis was obtained using monopolar electrodesiccation. The wound site was then covered with a dressing while the tissue samples were processed for examination. The specimen was oriented, mapped and divided. Each section was then inked and processed in the Mohs lab using the Mohs protocol and submitted for frozen section. The histopathologic sections were reviewed by the surgeon in conjunction with the reference map. Total blocks: 1 Total slides: 3 Frozen sections were examined by the surgeon. No additional tumor was identified. No additional histologic findings appreciated. Cell morphology: N/A. No tumor seen at the margin. Pathological pattern: N/A. No tumor seen. Depth of invasion: N/A. No tumor seen. Scar tissue: Not Present Perineural invasion: Not Present Inflammation obscuring possible tumor presence: Not Present [facility] Mohs CLIA # [id number] Mohs photographic laboratory technician: Mohinder Willson MD REPAIR: Intermediate Primary Surgeon: Mohinder Willson MD Medical Education Manager: N/A Repair Size: 3.8 cm Sutures: 4-0 monocryl, Dermabond The defect was identified and a marking pen was used to plan the repair. The area was infiltrated with Lidocaine 1% with epinephrine 1:100,000 buffered with sodium bicarbonate 8.4% in a 1:10 ratio, prepped with hibiclens and draped with sterile towels. The wound was debeveled and undermined widely. Cones were excised within relaxed skin tension lines on both sides of the defect. Hemostasis was obtained using monopolar electrodesiccation. The dermis and subcutaneous tissue were then approximated using buried vertical mattress sutures. Running subcuticular sutures were carefully placed for maximum eversion and meticulous wound edge approximation. Careful attention was paid to avoid distorting any nearby free margins. The wound was cleansed with saline and ointment was applied along the wound surface. A sterile pressure dressing was applied. Wound care instructions were given verbally and in writing. The patient left the operating suite in stable condition. Patient was informed that additional refinement of the resulting surgical scar may be used as a second stage of this reconstruction. No postoperative medications were prescribed. The patient will follow up with their primary landmen. Dr. Willson performed the entire surgery, and documentation used to initiate this operative report. I entered the information in our [employer] DocFlowsheet with the information provided by Dr. Willson on his handwritten, paper format, surgical worksheet, which was then used to initiate the create of this note. Dr. Willson then reviewed and edited the note as needed to complete the note. Payton Marr LPN I have reviewed the note, edited it as necessary and performed the entire procedure. Mohinder Willson MD Blue Line Trimmer 03/04/2025 us Mohinder Willson MD PROCEDURE/MINOR SURGICAL ORDER JUANCHO Final Result * NC TANGNTL BX SKIN SINGLE LES, NC TANGNTL BX SKIN EA SEP ADDL (02/22/2025 10:19 AM CDT) Narrative Marylou Mendoza MD - 02/22/2025 10:19 AM CDT Marylou Mendoza MD 02/22/2025 10:35 AM Risks, benefits and alternatives to shave biopsy were discussed with the patient. Verbal consent was obtained. Location: right dorsal forearm, left mid willett Diagnosis: Neoplasm of Uncertain Behavior Skin prep: Alcohol Anesthesia: 1% lidocaine with epinephrine Hemostasis: Aluminum chloride, electrocautery Dressing and wound care discussed. Specimen(s) placed in a patient labeled container and sent to dermatopathology. Krista Clarke MD [facility] Dermatology Resident Marylou Mendoza MD PROCEDURE/MINOR SURGICAL ORDE RABLES Final Result * NC DESTROY PREMALIG LESION, 1ST LESION, NC DESTROY PREMALIG LESION, 2-14 (02/22/2025 10:19 AM CDT) Narrative Marylou Mendoza MD - 02/22/2025 10:19 AM CDT Marylou Mendoza MD 02/22/2025 10:35 AM Diagnosis and treatment options discussed. Cryotherapy (Liquid Nitrogen) to 13 AK x 6-7 seconds each. Number of cycles: 1. Wound care reviewed. Krista Clarke MD [facility] Dermatology Resident Marylou Mendoza MD PROCEDURE/MINOR SURGICAL ORDE RABLES Final Result * DERMATOPATHOLOGY (02/22/2025 10:15 AM CDT) Case Report Dermatopathology Report Case: [id number] Authorizing Provider: Marylou Mendoza MD Collected: 02/22/2025 10:15 AM Ordering Location: [facility] - Received: 02/22/2025 10:15 AM Dermatology Pathologist: Marylou Mendoza MD Specimens: A) - Skin, left mid willett B) - Skin, right dorsal forearm 5 4:08 PM CDT DERMATOPATHOLOGY LABORATORY Final Diagnosis Specimen A. SKIN, left mid willett: LARGE CELL ACANTHOMA (D23.9) ACTINIC KERATOSIS, PIGMENTED (L57.0) (see microscopic description and comment) Specimen B. SKIN, right dorsal forearm: SQUAMOUS CELL CARCINOMA, WELL DIFFERENTIATED (C44.622) 5 4:08 PM CDT DERMATOPATHOLOGY LABORATORY at 1608 CDT Clinical History A: Melanoma vs Lentigo B: Recurrent SCC vs BCC vs Retained Suture 5 4:08 PM CDT DERMATOPATHOLOGY LABORATORY Gross Description Specimen A: Received is one formalin filled container labeled with the patient's name and designated left mid willett. The specimen consists of a shave biopsy measuring 8x5x1 mm. Jar 0. Specimen B: Received is one formalin filled container labeled with the patient's name and designated right dorsal forearm. The specimen consists of a shave biopsy measuring 7x7x2 mm. Jar 0. 5 4:08 PM CDT DERMATOPATHOLOGY LABORATORY Microscopic Description Specimen A. SKIN, left mid willett: Sections show compact orthokeratosis with acanthosis composed of slightly larger keratinocytes with basal layer hyperpigmentation. In addition, there is adjacent is alternating orthokeratosis and parakeratosis. Along the undersurface of the epidermis, there are buds of atypical keratinocytes in a disorderly arrangement, which are highlighted on Mib1 (Ki-67), a proliferation marker. There is prominent pigmentation in some of the keratinocytes. MART-1/Melan A highlights a mild increase of melanocytes along the basal layer. COMMENT: If this specimen is sampled from a larger lesion, these findings may not be physician relations representative of the entire lesion. Clinicopathologic correlation is recommended. Specimen B. SKIN, right dorsal forearm: Arising in the epidermis and extending into the dermis there are irregularly shaped aggregates of keratinocytes showing evidence of premature cornification. 4:08 PM CDT DERMATOPATHOLOGY LABORATORY Disclaimer An external and internal positive and negative controls are appropriate for the histochemical, immunohistochemical and immunofluorescence stain(s) in this case (if any), except where stated explicitly. The performance characteristics of the stain(s) cited in this report were developed and its performance characteristic determined by the Dermatopathology Laboratory at [facility], directed by Dr. Olga Mendoza. These tests need not be, and therefore are not, approved by the [place] Food and Drug Administration. The tests are used for clinical purposes. Billing Codes Specimen Charges Stain Charges 16301 00749 1 1 07373 71516 1 1 5 4:08 PM CDT DERMATOPATHOLOGY LABORATORY Embedded Images 5 4:08 PM CDT DERMATOPATHOLOGY LABORATORY Pathology/Cytology TISSUE SPECIMEN FROM SKIN / Unknown Collection / Unknown 02/22/2025 10:15 AM CDT 02/22/2025 10:15 AM CDT Miscellaneous samples (specimen) TISSUE SPECIMEN FROM SKIN / Unknown 02/22/2025 10:15 AM CDT 02/22/2025 10:15 AM CDT Marylou Mendoza MD LAB - PATHOLOGY/CYTOLOGY NIKI BUTLER Final Result DERMATOPATHOLOGY LABORATORY [facility] - Department of Dermatology [address] [phone] from Last 3 Months Insurance MEDICARE [facility] MEDICARE [facility] Care Teams Administrative Asst Relationship Specialty Start Date End Date Jackie Meneses PA-C [address] [address] PCP - General Physician Medical Education Manager 04/06/24
--- OUTSIDE RECORDS SUMMARY | 2025-04-01 10:23 | XMS_ITS | Clinical Summary ---
Author Organization [facility] Address [facility] [place] [address] Care Team Providers Care Chief Building Inspector Name Role Phone Jackie Meneses Primary Care Provider [phone] Social History Tobacco Use Types Packs/Day Years Used Date Smoking Tobacco: Never Assessed Comments Unknown Sex and Gender Information Value Date Recorded Sex Assigned at Not on file Legal Sex Female 7:40 PM CDT Gender Identity Not on file Sexual Orientation Not on file Last Filed Vital Signs Vital Sign Reading Time Taken Comments Blood Pressure 138/84 12/03/2012 6:18 PM CDT Pulse 92 12/03/2012 6:18 PM CDT Temperature - - Respiratory Rate - - Oxygen Saturation - - Inhaled Oxygen Concentration - - Weight 56.7 kg (125 lb) 12/03/2012 6:18 PM CDT Height 157.5 cm (5' 2) 12/03/2012 6:18 PM CDT Body Mass Index 22.86 12/03/2012 6:18 PM CDT Plan of Treatment Health Maintenance Due Date Last Done Comments Colorectal Cancer Screening Colonoscopy (10 Years) 1950 Hepatitis C 1968 DTaP, Tdap and Td Vaccines ( 1 - Tdap) 1969 Mammogram Screening 1990 Pneumococcal Vaccine: 50+ Years (1 of 1 - PCV) 2000 Annual Medicare Wellness Visit 2015 COVID-19 Vaccine (4 - 2024-2 6 season) 2025 06/05/2021, 09/24/2020, 09/03/2020 RSV Immunization or 60+ Years (1 - 1-dose 75+ series) 2025 Zoster Vaccines Completed 07/04/2021, 03/10/2021 Dexa Scan (General) Completed 06/01/2024, 05/30/2022 Meningococcal B Vaccine Aged Out No l onger eligible based on patient's age to complete this topic Meningococcal Vaccine Aged Out No jaziel nabor eligible based on patient's age to complete this topic RSV Immunizations Under 20 Months Aged Out No longer eligible b ased on patient's age to complete this topic Procedures Procedure Name Priority Date/Time Associated Diagnosis Comments BONE DENSITY/DEXA Routine 06/01/2024 1:0 8 PM SENIOR STAFF PSYCHOLOGIST Other primary ovarian failure from Last 3 Months or Most Recently Relevant to Health Maintenance Results * BONE DENSITY/DEXA (06/01/2024 1:08 PM SENIOR STAFF PSYCHOLOGIST) Anatomical Region Laterality Modality Bone Bone Density 06/01/2024 2:30 PM SENIOR STAFF PSYCHOLOGIST Impressions 06/01/2024 2:31 PM SENIOR STAFF PSYCHOLOGIST IMPRESSION: WHO Classification: osteoporosis RECOMMENDATIONS: All patients should ensure an adequate intake of dietary calcium and vitamin D. The NOF recommend adults under the age of 50 need 1000 mg of calcium and 400-800 IU of vitamin D daily. Effective therapy for the prevention and treatment of osteoporosis include bisphosphonates. FOLLOW-UP: People with diagnosed cases of osteoporosis or at high risk for fracture should have regular bone mineral density test. For patients eligible for Medicare, routine testing is allowed once every 2 years. Testing frequency can be increased to one year for patients who have rapidly progressing disease, those who are receiving or discontinuing medical therapy to restore bone mass, or have additional risk factors. Ordered By: JACKIE MENESES Interpreted By: Ton Ko MD, 06/01/2024 2:30 PM Narrative 06/01/2024 2:31 PM SENIOR STAFF PSYCHOLOGIST [facility] [id number] [place] [address] EXAMINATION: BONE DENSITY/DEXA INDICATIONS: Other primary ovarian failure TECHNIQUE: DEXA bone mineral density evaluation was performed in the AP projection over the lumbar spine and both hips utilizing standard imaging techniques. FINDINGS: The BMD measured at the AP spine L1-L4 is 0.912 g/cm? with a T-score of -1.2. The BMD measured at the left femoral neck is 0.492 g/cm? with a T-score of -3.2. The BMD measured at the left hip is 0.742 g/cm? with a T-score of -1.6. The BMD measured at the right femoral neck is 0.515 g/cm? with a T-score of - 3.0. The BMD measured at the right hip is 0.708 g/cm? with a T-score of -1.9. FRAX 10-year fracture risk: Not reported because some T score is at or below -2.5 Procedure Note Ton Ko MD - 06/01/2024 [facility] [id number] [place] [id number] EXAMINATION: BONE DENSITY/DEXA INDICATIONS: Other primary ovarian failure TECHNIQUE: DEXA bone mineral density evaluation was performed in the APprojection over the lumbar spine and both hips utilizing standard imagingtechniques. FINDINGS: The BMD measured at the AP spine L1-L4 is 0.912 g/cm? with a T-score of-1.2. The BMD measured at the left femoral neck is 0.492 g/cm? with a T-score of-3.2. The BMD measured at the left hip is 0.742 g/cm? with a T-score of -1.6. The BMD measured at the right femoral neck is 0.515 g/cm? with a T-scoreof -3.0. The BMD measured at the right hip is 0.708 g/cm? with a T-score of -1.9. FRAX 10-year fracture risk: Not reported because some T score is at or below -2.5 IMPRESSION: WHO Classification: osteoporosis RECOMMENDATIONS: All patients should ensure an adequate intake of dietary calcium andvitamin D. The NOF recommend adults under the age of 50 need 1000 mg ofcalcium and 400-800 IU of vitamin D daily. Effective therapy for theprevention and treatment of osteoporosis include bisphosphonates. FOLLOW-UP: People with diagnosed cases of osteoporosis or at high risk for fractureshould have regular bone mineral density test. For patients eligible forMedicare, routine testing is allowed once every 2 years. Testing frequencycan be increased to one year for patients who have rapidly progressingdisease, those who are receiving or discontinuing medical therapy torestore bone mass, or have additional risk factors. 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
== END 2025-04-01 09:35 | disposition home or self-care (01) ==
LOC: ANHFOHIMG 09:37
PROVIDERS: PCP Physician Assistant Medical; Visit Provider Physician Assistant Medical
DX: Z12.31 Encounter for screening mammogram for malignant neoplasm of breast (principal)
CPT/HCPCS: 77063; 77067